=== PATIENT | female | born 1960 | race Caucasian/White ===

== ENCOUNTER 2019-01-05 14:57 | Emergency (ER) | payer OTHER ==
[~2019-01-05] VITALS: Ht 157.5 cm; Wt 68.0 kg
[2019-01-05 15:16] VITALS: BP 140/86
--- NOTE | 2019-01-05 15:25 | NUR ---
Patient ambulated to bed 7. RN evaluating patient at bedside.
--- NOTE | 2019-01-05 15:30 | NUR ---
PATIENT PRESENTS TO ED C/O LT ANKLE PAIN S/P FALL TODAY. PT STATES SHE TWISTED HER ANKLE AND PAIN IS 6/10 AT THIS TIME. DENIES NUMBNESS; NO OBVIOUS DEFORMITY; GOOD CAP REFILL NOTED. PERIPHERAL PULSES PRESENT. EDEMA NOTED TO AFFECTED SITE. VSS; PATIENT POSITIONED FOR COMFORT; BEDRAILS UP X1; BED DOWN. ER MD TO EVALUATE PT.
--- NOTE | 2019-01-05 15:31 | NUR ---
Dr. Pierce evaluating patient at bedside.
--- NOTE | 2019-01-05 15:37 | NUR ---
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
[2019-01-05 16:21] VITALS: BP 140/86
--- NOTE | 2019-01-05 16:21 | NUR ---
Patient discharged with v/s stable. Written and verbal after care instructions given and explained. Patient alert, oriented and verbalized understanding of instructions. Wheel Chair Assisted with to car. All questions addressed prior to discharge. ID band removed. Patient advised to follow up with PMD. Rx of TRAMADOL 7 MOTRIN given. Patient educated on indication of medication including possible reaction and side effects. Opportunity to ask questions provided and answered.
== END 2019-01-05 16:21 | disposition home or self-care (01) ==
LOC: MED 14:57
DX: S93.402A Sprain of unspecified ligament of left ankle, initial encounter (principal); Z88.1 Allergy status to other antibiotic agents; Z90.710 Acquired absence of both cervix and uterus; W18.31XA Fall on same level due to stepping on an object, initial encounter; Y93.89 Activity, other specified; Y92.89 Other specified places as the place of occurrence of the external cause; Y99.8 Other external cause status
CPT/HCPCS: 73610; 99283; Q0092

== ENCOUNTER 2021-05-19 20:58 | Emergency (ER) | payer OTHER ==
[~2021-05-19] VITALS: Ht 157.5 cm; Wt 68.0 kg
[2021-05-19 21:10] VITALS: BP 158/100
[2021-05-19] MEDS ORDERED: ONDA8TAB87 PO (21:45)
[2021-05-19] MEDS ORDERED: PRED20TA5 PO (21:45)
[2021-05-19 21:56] VITALS: BP 158/100
== END 2021-05-19 21:55 | disposition home or self-care (01) ==
LOC: MED 20:58
DX: U07.1 COVID-19 (principal); R05.9 Cough, unspecified; R11.0 Nausea; I10 Essential (primary) hypertension; Z88.1 Allergy status to other antibiotic agents; Z79.899 Other long term (current) drug therapy; Z90.710 Acquired absence of both cervix and uterus; Z87.442 Personal history of urinary calculi
CPT/HCPCS: 99283

== ENCOUNTER 2023-12-29 03:50 | Emergency (ER) | payer OTHER ==
[~2023-12-29] VITALS: Ht 157.5 cm; Wt 65.8 kg
[~2023-12-29 03:50] MED LIST: ONDA8TAB87 PO; PRED20TA5 PO
[2023-12-29 04:13] VITALS: BP 144/78; PULSE 64; RESP 16; TEMP 97.9; O2SAT 100
[2023-12-29] MEDS: ACETAMINOPHEN EXTRA STRENGTH 500 MG TAB PO ONE (05:09)
[2023-12-29] MEDS: ONDANSETRON 4 MG/2 ML VIAL IVP ONE (05:09)
[2023-12-29] MEDS: KETOROLAC 30 MG/ML VIAL IVP ONE (05:10)
[2023-12-29 05:26] LABS: BASOPHILS # (AUTO) 0.1 K/uL (0.00-0.22); BASOPHILS % (AUTO) 0.5 % (0.0-2.0); EOSINOPHILS % (AUTO) 0.1 % (0.0-4.0); HEMATOCRIT 44.5 % (36-48); HEMOGLOBIN 15.5 g/dL (12.0-16.0); LYMPHOCYTES # (AUTO) 0.7 K/uL (2.5-16.5); LYMPHOCYTES % (AUTO) 3.9 % (20.5-51.1); MEAN CORPUSCULAR HEMOGLOBIN 33 pg (27-31); MEAN CORPUSCULAR HGB CONC 35 g/dL (33-37); MEAN CORPUSCULAR VOLUME 95.7 fL (80-94); MONOCYTES # (AUTO) 0.5 K/uL (0.8-1.0); MONOCYTES % (AUTO) 2.8 % (1.7-9.3); NEUTROPHILS # (AUTO) 15.8 K/uL (1.8-7.7); NEUTROPHILS % (AUTO) 92.7 % (42.2-75.2); PLATELET COUNT (AUTO) 161 K/uL (140-450); RED BLOOD CELL COUNT(AUTO) 4.65 MIL/uL (4.20-5.40); RED CELL DISTRIBUTION WIDTH 13.3 % (11.6-13.7); WHITE BLOOD COUNT (AUTO) 17.1 K/uL (4.8-10.8)
[2023-12-29 05:27] LABS: APPEARANCE,URINE CLEAR (CLEAR); BILIRUBIN,URINE NEGATIVE (NEGATIVE); BLOOD, URINE 2+ (NEGATIVE); COLOR,URINE YELLOW (YELLOW); LEUKOCYTE ESTERASE ,URINE 3+ (NEGATIVE); NITRITE, URINE POSITIVE (NEGATIVE); PROTEIN,URINE NEGATIVE (NEGATIVE); UGLUCOSE NEGATIVE (NEGATIVE); UROBILINOGEN,URINE 0.2 EU/dL (0.2 - 1)
[2023-12-29] MEDS ORDERED: cefTRIAXone 1,000 MG VIAL ONE (05:54)
[2023-12-29 05:57] LABS: ANION GAP 13.3 (8-16); CALCIUM 8.7 mg/dL (8.5-10.1); CARBON DIOXIDE 24.2 mmol/L (21-32); CREATININE 0.7 mg/dL (0.6-1.3); POTASSIUM 3.5 mmol/L (3.5-5.1)
[2023-12-29 05:59] LABS: ALBUMIN 3.1 g/dL (3.4-5.0); BILIRUBIN,DIRECT 0.4 mg/dL (0.0-0.3); TOTAL BILIRUBIN 1.1 mg/dL (0.0-1.0); TOTAL PROTEIN, SERUM 6.5 g/dL (6.4-8.2)
[2023-12-29 06:28] LABS: RBC,URINE 20-50 /HPF (0-5); WBC,URINE 16-25 (MOD) /HPF (0-5)
[2023-12-29 06:29] LABS: BACTERIA,URINE >30 (MANY) /HPF (None Seen); MUCUS,URINE 1+ /LPF (None Seen); SQUAMOUS EPITHELIAL CELL,UR 0-3 (FEW) /LPF (0-3 (FEW))
[2023-12-29] MEDS ORDERED: AMOX1TAB8 PO (08:04)
[2023-12-29] MEDS ORDERED: TAMS0.4C96 PO (08:04)
[2023-12-29] MEDS ORDERED: KETO10TA2 PO (08:04)
[2023-12-29 08:15] VITALS: BP 127/70; PULSE 74; RESP 12; TEMP 98.1; O2SAT 96
== END 2023-12-29 08:15 | disposition home or self-care (01) ==
LOC: MED 03:50
DX: N12 Tubulo-interstitial nephritis, not specified as acute or chronic (principal); I10 Essential (primary) hypertension; Z87.442 Personal history of urinary calculi; Z79.1 Long term (current) use of non-steroidal anti-inflammatories (NSAID); Z79.2 Long term (current) use of antibiotics; Z79.899 Other long term (current) drug therapy; Z88.1 Allergy status to other antibiotic agents; Z88.2 Allergy status to sulfonamides
CPT/HCPCS: 36415; 74176; 80048; 80076; 81001; 83690; 85025; 87086; 87186; 96365; 96375; 99285; J0696; J1885; J2405